=== PATIENT | female | born 1940 | race Caucasian/White ===

== ENCOUNTER 2016-09-14 17:38 | Emergency (ER) | payer OTHER, MEDICARE ==
[~2016-09-14] VITALS: Ht 160 cm; Wt 59.0 kg
[~2016-09-14 17:38] MED LIST: DIABETA PO; GLUCOPHAGE500 MG PO; GLYBURIDE 5 MG T5 M1 PO; METFORMIN PO; QUININE PO; RAW CALCIUM PO; [UNRECOGNIZED DRUG - OTHER] PO
[2016-09-14] MEDS ORDERED: LISINOPRIL40 MG PO (17:42)
[2016-09-14] MEDS ORDERED: NORCO 5-325 TA1 EACH PO (18:20)
[2016-09-14 18:31] VITALS: BP 164/110
== END 2016-09-14 18:32 | disposition home or self-care (01) ==
LOC: ER 17:38
DX: S00.93XA Contusion of unspecified part of head, initial encounter (principal); E11.9 Type 2 diabetes mellitus without complications; Z90.89 Acquired absence of other organs; W01.10XA Fall on same level from slipping, tripping and stumbling with subsequent striking against unspecified object, initial encounter; Y93.01 Activity, walking, marching and hiking; Y92.89 Other specified places as the place of occurrence of the external cause; Y99.8 Other external cause status

== ENCOUNTER 2016-11-08 19:53 | Inpatient (IN) | payer OTHER ==
[~2016-11-08] VITALS: Ht 160 cm; Wt 74.9 kg
--- NOTE | ~2016-11-08 | HC ---
[facility] [place] [address] CONSULTATION Name: CHERELLE SMITH Room #: 314-P [facility] IN .R.#: [id number] Admission: 11/08/16 Attend Phys: Kyle Donovan MD Discharge: 11/13/16 Date of : 38 Report #: [id number] THIS REPORT FOR: //name// CC: FAM unknown Kyle Donovan DATE OF SERVICE: 11/09/2016 HISTORY OF PRESENT ILLNESS: The patient is a 76-year-old white female with a prior history of diabetes mellitus, hypertension, premorbidly independent and ambulatory typically without gait aids. She was admitted with 3 falls in the past 2 days. She was found down approximately one hour in her bathroom. She was noted to have mental status changes with metabolic encephalopathy. She had an elevated troponin. Cardiology is involved and a nuclear stress test is currently pending. She was noted to have urinary tract infection and acute renal insufficiency with an elevated creatinine. She has pulmonary hypertension and pulmonary medicine as noted, the need for a V/Q scan. She also has a questionable mass of the right hilar region. With her mental status changes and decreased function, we are consulted regarding rehabilitation issues. PAST MEDICAL HISTORY: Includes rul-pfmnndp-ykqznykck diabetes mellitus, right eye surgery. ALLERGIES: No known drug allergies. MEDICATIONS: Please see the full medication listing. HABITS: No history of tobacco or alcohol abuse. SOCIAL HISTORY: Lives at [facility] living [facility]. Did not utilize gait aids, although has a cane. She would typically walk her small dog. There is an involved son. REVIEW OF SYSTEMS: Notes some frustration with her current situation. No current complaints of chest pain, shortness of breath or abdominal discomfort. No focal extremity pain complaints. She has some generalized weakness and fatigue and has concerns regarding why she is falling. PHYSICAL EXAMINATION: GENERAL: She is a 76-year-old white female in no obvious distress. VITAL SIGNS: Last recorded temperature 98.9, pulse 85, respirations 18, blood pressure 122/55. NEUROLOGIC: The patient is alert. Her eye contact is very limited and she seems frustrated at having to be here in the hospital. Limited verbalizations. What she says; however, appears appropriate, although there is a definite latency. Facies appeared symmetric. She notes an old right rotator cuff [address] [address] CONSULTATION Name: CHERELLE SMITH LETTY Room #: [address] [place] [address] IN .R.#: [id number] Admission: 11/08/16 Attend Phys: Kyle Donovan MD Discharge: 11/13/16 Date of : 38 Report #: [id number] shoulder injury. EXTREMITIES: Upper extremities revealed functional range of motion with strength probably a grade 4-/5. In the lower extremities, there is no focal calf swelling. Functional range of motion with strength at grade 3+ to 4-/5. DTRs are trace to 1. She was min assist with sit to stand. She last ambulated 6 steps min assist. ASSESSMENT: A 76-year-old white female with the following problem list: 1. Metabolic encephalopathy. 2. Elevated troponin with nuclear stress test pending. 3. Pulmonary hypertension with recommendations for a V/Q scan per Pulmonary Medicine. 4. Acute renal insufficiency with elevated creatinine. 5. Questionable mass, right hilar region. 6. Urinary tract infection. 7. History of falls x 3 prior to admission. 8. Gait instability. 9. Prior right rotator cuff injury. PLAN: She should be a candidate for an acute in-hospital inpatient rehabilitation stay as she further medically stabilizes. From a preadmission screening perspective: 1. Prior level of function is delineated above. 2. Expect level of improvement would be for her to improve with her gait mobility and hopefully decrease the chances of falling. Goal would be to be independent at least initially at the walker level as well as further improvement with independence with ADLs and cognition, so she can return back to her home setting. Would anticipate a length of stay of probably at least 10 days to 2 weeks pending progress. 3. Evaluation of the patient's risk for clinical complications. She has the multiple above noted comorbidities. 4. Condition that caused the need for rehabilitation would be the metabolic encephalopathy. 5. Treatments needed would include PT, OT and speech 1 hour per day each five days a week throughout the duration of the acute inpatient rehabilitation stay. 6. Anticipated discharge destination would be back to the home setting. 7. Would anticipate home healthcare therapies once ready for discharge. 8. The patient meets diagnostic criteria for an acute in-hospital inpatient rehabilitation stay. She meets medical necessity criteria and we have the multiple document management consultant physicians that are involved. They include Pulmonary Medicine as well as Cardiology, Internal Medicine. They could all follow while the patient is on the acute inpatient rehab trujillo. She does have the tolerance [address] [address] CONSULTATION Name: CHERELLE SMITH Room #: 314-P [facility] IN M.R.#: [id number] Admission: 11/08/16 Attend Phys: Kyle Donovan MD Discharge: 11/13/16 Date of : 38 Report #: [id number] for an acute rehab program and has appropriate discharge goals back to the home setting. <ELECTRONICALLY SIGNED> By: Anmol Dickson MD 11/16/16 1350 1328 1405 Anmol Dickson MD /nt
--- NOTE | ~2016-11-08 | 2DMMODE ---
[facility] [address] [place] [address] 2 D/M-MODE ECHOCARDIOGRAM Name: CHERELLE SMITH Room #: 201-P [facility] IN ..#: [id number] Admission: 11/08/16 Attend Phys: Kyle Donovan MD Discharge: Date of : 38 Date of Service: 11/09/16 1817 Report #: [id number] THIS REPORT FOR: //name// APPROVED REPORT Study performed: 11/09/2016 11:51:08 EXAM: Comprehensive 2D, Doppler, and color-flow Echocardiogram Patient Location: Bedside Room #: 201 Status: routine Other Information Study Quality: Good Indications Diabetes Elevated Troponin Hypertension/HDD 2D Dimensions RVDd: 36.14 mm LVEF(%): 72.77 (>50%) IVSd: 11.96 (7-11mm) LVOT Diam: 19.05 (18-24mm) LVDd: 41.60 mm PWd: 10.70 (7-11mm) Ascending Ao: 31.39 (22-36mm) LVDs: 24.36 (25-40mm) Aortic Root: 34.48 mm IVC: 2.90 mm Jimenez's LVEF: 72.77 % Volumes Left Atrial Volume (Systole) Single Plane 4CH: 45.47 mL Single Plane 2CH: 71.76 mL Aortic Valve AoV Peak Giancarlo.: 1.48 m/s AO Peak Gr.: 8.77 mmHg LVOT Max P.72 mmHg LVOT Max V: 0.82 m/s ANIBAL Vmax: 1.58 cm2 Mitral Valve E/A Ratio: 0.9 MV Decel. Time: 251.86 ms MV E Max Giancarlo.: 0.96 m/s MV A Giancarlo.: 1.11 m/s MV PHT: 73.04 ms [facility] [address] [place] [address] 2 D/M-MODE ECHOCARDIOGRAM Name: SARAHCHERELLE LETTY Room #: 201-P [facility] IN M.R.#: [id number] Admission: 11/08/16 Attend Phys: Kyle Donovan MD Discharge: Date of : 38 Date of Service: 11/09/16 1817 Report #: [id number] IVRT: 78.43 ms Pulmonary Valve PV Peak Giancarlo.: 0.80 m/s PV Peak Gr.: 2.58 mmHg Pulmonary Vein P Vein S: 0.41 m/s P Vein A: 0.24 m/s P Vein D: 0.31 m/s P Vein A Dur.: 99.2 msec P Vein S/D Ratio: 1.32 Tricuspid Valve TR Peak Giancarlo.: 3.68 m/s RAP Estimate: 10.00 mmHg TR Peak Gr.: 54.23 mmHg PA Pressure: 64.00 mmHg Left Ventricle The left ventricle is normal size. There is normal LV segmental wall motion. Mild concentric left ventricular hypertrophy. The left ventricular systolic function is normal. The left ventricular ejection fraction is within the normal range. LVEF is 60-65%. Grade I - abnormal relaxation pattern. Right Ventricle The right ventricle is normal size. The right ventricular systolic function is normal. Atria Left atrium is dilated. The right atrium size is normal. Aortic Valve Aortic valve is calcified. Mild aortic regurgitation. There is no aortic valvular stenosis. Mitral Valve Moderate mitral annular calcification. Trace mitral regurgitation. No evidence of mitral valve stenosis. Tricuspid Valve The tricuspid valve is normal in structure. There is mild to moderate tricuspid regurgitation. The right atrial pressure is estimated at 10 mmHg. There is moderate pulmonary hypertension with an estimated PAP of 60 mmHg. Pulmonic Valve The pulmonary valve is normal in structure. Trace pulmonic regurgitation. [facility] [address] [place] [address] 2 D/M-MODE ECHOCARDIOGRAM Name: CHERELLE SMITH Room #: 201-P [facility] IN ..#: [id number] Admission: 11/08/16 Attend Phys: Kyle Donovan MD Discharge: Date of : 38 Date of Service: 11/09/16 1817 Report #: [id number] Great Vessels The aortic root is normal in size. The ascending aorta is normal in size. IVC is dilated and collapses <50% with inspiration. Pericardium There is no pericardial effusion. <Conclusion> The left ventricular systolic function is normal. There is normal LV segmental wall motion. Mild concentric left ventricular hypertrophy. LVEF is 60-65%. Grade I diastolic dysfunction Left atrium is dilated. Aortic valve is calcified, no stenosis, mild insufficiency. Moderate mitral annular calcification. Trace mitral regurgitation. Pulmonary artery pressure of 60mmHg There is no pericardial effusion. <ELECTRONICALLY SIGNED> By: Davon Perla MD, [facility] 11/09/161816 16 16 Davon Perla MD, FACC /INF
--- NOTE | ~2016-11-08 | EKG ---
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 : 1940 Requested By: Phil Ramsay Order Number: [id number] MD: Davon Perla Measurements Intervals [place] Rate: 85 P: 28 TX: 135 QRS: 58 QRSD: 94 T: 37 QT: 385 QTc: 458 Interpretive Statements Sinus rhythm Occasional atrial premature complexes Compared to ECG 10/19/2010 07:10:19 No significant change was found Electronically Signed On 11-10-2016 8:45:27 CDT by Davon Perla [email or web address] <ELECTRONICALLY SIGNED> By: Davon Perla MD, [facility] 11/10/1645 56 56 Davon Perla MD, [facility] /EPI
--- NOTE | ~2016-11-08 | HC ---
[facility] [place] [address] CONSULTATION Name: CHERELLE SMITH Room #: 202-P ADM IN M.R.#: [id number] Admission: 11/08/16 Attend Phys: Kyle Donovan MD Discharge: Date of : 38 Report #: [id number] THIS REPORT FOR: //name// CC: FAM unknown Kyle Donovan DATE OF SERVICE: 11/12/2016 REASON FOR CONSULTATION: Elevated creatinine. REASON FOR PRESENTATION: Dizziness. HISTORY OF PRESENT ILLNESS: The patient is a 76-year-old with multiple comorbid issues including diabetes mellitus, hypertension, severe pulmonary hypertension. She presented to the hospital reporting some dizziness. On presentation to the Emergency Room, her creatinine was 1.9. Further evaluation and management mandated an admission to the hospital. Her hospital course revealed that the son found the patient in the bathroom. There was no reported chest pain, fever or chills. No shortness of breath, no nausea or vomiting. The patient is currently confused and the details of the history were obtained from the medical charts. Further evaluation in the hospital revealed that she had a possible mass in the right hilar region with what seems to be lung infiltrates. Pulmonary had been consulted along with the cardiac team. She had a myocardial perfusion effusion scan, echo, lower extremity ultrasounds. The results of those are well documented in the medical charts. The patient's blood pressure is very labile with readings as high as 194/99. In the last few days, she continued to have some issues with hyponatremia, acute kidney injury with a creatinine rising up to 2.7 and then down to 2.6 today. She did have some issues with potassium yesterday. She continues to make good amount of urine and I was consulted to manage her acute kidney injury. PAST MEDICAL HISTORY: 1. Hypertension. 2. Status post tonsillectomy. 3. Colonoscopy. 4. Diabetes mellitus. 5. Seems to be chronic kidney disease based on her previous records. 6. Dementia. 7. Diabetic retinopathy. FAMILY HISTORY: Her father of a heart attack at the age of 54. Her brother of a heart attack at the age of 57. SOCIAL HISTORY: No reported drug or alcohol abuse. She resides in a nursing facility. [address] [address] CONSULTATION Name: CHERELLE SMITH Room #: 202-P [facility] IN [facility]#: [id number] Admission: 11/08/16 Attend Phys: Kyle Donovan MD Discharge: Date of : 38 Report #: [id number] MEDICATIONS: On presentation listed amongst the patient's medications are the followin. Lisinopril. 2. Glucophage. 3. Aleve. 4. Ibuprofen. REVIEW OF SYSTEMS: The patient is currently disoriented to time, place and person and not able to provide me with any review of systems. PHYSICAL EXAMINATION: GENERAL: She is disoriented. VITAL SIGNS: Temperature 36.4, blood pressure 194/99. HEAD AND NECK: No jugular venous distention. CHEST: Decreased air entry bilaterally. CARDIOVASCULAR: Regular with no rub detected. ABDOMEN: Soft, nontender with no hepatosplenomegaly. LOWER EXTREMITIES: +2 edema. LABORATORY VALUES: Reviewed. Creatinine is down to 2.6. Sodium is depressed at 126. Potassium is down. ASSESSMENT, IMPRESSION AND PLAN: 1. Acute kidney injury. 2. Chronic kidney disease. 3. Severe pulmonary hypertension. 4. Diabetes mellitus. 5. Urinary tract infection. 6. Initiate appropriate workup for her acute kidney injury. 7. She does seem to have an element of chronic kidney disease based on her previous values. 8. Initiate diuresis. 9. Treat her urinary tract infection. 10. Watch blood pressure and gently reduce her blood pressure readings to a target of around 150-160, avoid aggressive blood pressure reductions to avoid further deterioration of her kidney issues. 11. Continue with the normal saline for today. 12. We will continue to follow along. By: [id number] Tereso Patel MD /nt
[~2016-11-08 19:53] MED LIST changes: +LISINOPRIL40 MG PO; +NORCO 5-325 TA1 EACH PO
[2016-11-08 19:58] VITALS: BP 130/51
[2016-11-08] MEDS ORDERED: MAGOX 400400 MG PO (20:02)
[2016-11-08] MEDS ORDERED: NAPROSYN500 MG PO (20:03)
[2016-11-08] MEDS ORDERED: SEROQUEL 25 MG25 M2 PO (20:05)
[2016-11-08] MEDS ORDERED: IBUPROFEN 200200 M1 PO (20:06)
[2016-11-08 21:23] LABS: HEMATOCRIT 32.7 % (37.0-47.0); MANUAL DIFF YES; MCH 27.5 pg (26.0-34.0); MCHC 33.6 g/dL (28.0-37.0); MCV 81.7 fL (80.0-100.0); PLATELET COUNT 179 thou/uL (150-400); RBC 4.01 mil/uL (4.20-5.00); RDW 15.1 % (10.5-14.5); WBC 9.5 thou/uL (4.0-11.0)
[2016-11-08 21:24] LABS: URINE BILIRUBIN NEGATIVE (Negative); URINE BLOOD 2+ (Negative); URINE COLOR YELLOW; URINE GLUCOSE-RANDOM* NEGATIVE (Negative); URINE KETONES NEGATIVE (Negative); URINE LEUKOCYTES-REFLEX 2+ (Negative); URINE PROTEIN (DIPSTICK) 2+ (Negative); URINE SPECIFIC GRAVITY 1.015 (1.003-1.035); URINE UROBILINOGEN 0.2 E.U./dl (0.2-1.0)
[2016-11-08 21:26] LABS: CALCIUM 9.2 mg/dL (8.5-10.1); CREATININE 1.9 mg/dL (0.6-1.0); POTASSIUM 4.5 mmol/L (3.5-5.1)
[2016-11-08 21:35] LABS: TROPONIN-I 0.28 ng/mL (<0.04-0.07)
[2016-11-08 21:38] LABS: CASTS None Seen /LPF (None Seen); CRYSTALS None Seen /LPF (None Seen); SQUAMOUS >10 Many /LPF (0-3); URINE WBC-REFLEX >25 Many /HPF (0-5)
[2016-11-08 21:44] LABS: ABSOLUTE NEUTROPHILS 9.3 thou/uL (1.4-8.2); LARGE PLATELETS FEW; TOTAL CELL COUNT 100; TOXIC GRANULATION 2+
[2016-11-08 21:45] LABS: ANISOCYTOSIS SLIGHT; BURR CELLS 1+
[2016-11-08 23:12] LABS: APTT 25.8 Seconds (24.5-32.8); PROTIME 10.5 Seconds (9.3-11.4)
[2016-11-08 23:32] VITALS: BP 130/51
[2016-11-09 00:01] VITALS: BP 149/54
[2016-11-09 02:51] LABS: TSH 0.91 uIU/mL (0.358-3.740)
[2016-11-09 04:45] VITALS: BP 123/65
[2016-11-09 05:31] LABS: HEMATOCRIT 30.1 % (37.0-47.0); HEMOGLOBIN 10.1 gm/dL (12.0-15.0); MCH 27.3 pg (26.0-34.0); MCHC 33.6 g/dL (28.0-37.0); MCV 81.2 fL (80.0-100.0); RBC 3.71 mil/uL (4.20-5.00); RDW 15.1 % (10.5-14.5)
[2016-11-09 05:50] LABS: CALCIUM 8.4 mg/dL (8.5-10.1); CREATININE 1.9 mg/dL (0.6-1.0); POTASSIUM 4.6 mmol/L (3.5-5.1); TROPONIN-I 0.46 ng/mL (<0.04-0.07)
[2016-11-09 05:53] LABS: CHOLESTEROL 132 mg/dL (<200); HDL CHOLESTEROL 47 mg/dL (>40); LDL CHOLESTEROL 73 mg/dL (<100); SERUM ASSESSMENT Clear; TC:HDL 2.8 Ratio (Not establshd); TRIGLYCERIDE 62 mg/dL (<150); VLDL 12 mg/dL (<40)
[2016-11-09 05:58] LABS: PROTIME 10.7 Seconds (9.3-11.4)
[2016-11-09 06:07] LABS: APTT 60.7 Seconds (24.5-32.8)
[2016-11-09 07:05] VITALS: BP 119/63
[2016-11-09 11:25] VITALS: BP 150/71
[2016-11-09 15:20] VITALS: BP 133/64
[2016-11-09 19:02] VITALS: BP 149/65
[2016-11-10 03:20] VITALS: BP 118/66
[2016-11-10 07:00] VITALS: BP 122/55
[2016-11-10 07:03] LABS: HEMOGLOBIN 10.5 gm/dL (12.0-15.0); MCH 27.6 pg (26.0-34.0); MCV 81.4 fL (80.0-100.0); RBC 3.81 mil/uL (4.20-5.00); RDW 15.7 % (10.5-14.5); WBC 10.1 thou/uL (4.0-11.0)
[2016-11-10 08:45] LABS: CALCIUM 8.3 mg/dL (8.5-10.1); CREATININE 2.5 mg/dL (0.6-1.0); POTASSIUM 4.5 mmol/L (3.5-5.1)
[2016-11-10 13:25] VITALS: BP 139/65
[2016-11-10 15:50] VITALS: BP 147/95
[2016-11-10 19:09] VITALS: BP 226/83
[2016-11-10 21:30] VITALS: BP 157/78
[2016-11-11] VITALS (7 sets, daily range): BP systolic 143–196; BP diastolic 64–95
[2016-11-11 05:56] LABS: HEMATOCRIT 30.6 % (37.0-47.0); HEMOGLOBIN 10.1 gm/dL (12.0-15.0); MCH 27.2 pg (26.0-34.0); MCHC 33.1 g/dL (28.0-37.0); MCV 82.3 fL (80.0-100.0); RBC 3.72 mil/uL (4.20-5.00); RDW 15.6 % (10.5-14.5); WBC 9.7 thou/uL (4.0-11.0)
[2016-11-11 06:15] LABS: CALCIUM 8.2 mg/dL (8.5-10.1); CREATININE 2.7 mg/dL (0.6-1.0); POTASSIUM 5.3 mmol/L (3.5-5.1)
[2016-11-12 02:56] VITALS: BP 129/65
[2016-11-12 02:57] LABS: ALBUMIN 2.2 g/dL (3.4-5.0); CALCIUM 8.5 mg/dL (8.5-10.1); CREATININE 2.6 mg/dL (0.6-1.0); PHOSPHORUS 3.1 mg/dL (2.5-4.9); POTASSIUM 4.5 mmol/L (3.5-5.1)
[2016-11-12 07:37] VITALS: BP 194/99
[2016-11-12 11:35] VITALS: BP 148/88
[2016-11-12 14:15] LABS: URINE BILIRUBIN NEGATIVE (Negative); URINE BLOOD 2+ (Negative); URINE COLOR YELLOW; URINE GLUCOSE-RANDOM* NEGATIVE (Negative); URINE KETONES 1+ (Negative); URINE NITRITE NEGATIVE (Negative); URINE PROTEIN (DIPSTICK) 1+ (Negative); URINE UROBILINOGEN 0.2 E.U./dl (0.2-1.0)
[2016-11-12 14:20] LABS: URINE PROTEIN-RANDOM* 69.1 mg/dL (<11.9)
[2016-11-12 14:23] LABS: SQUAMOUS 0-3 Few /LPF (0-3); URINE RBC 3-10 Few /HPF (0-2); URINE WBC 6-15 Few /HPF (0-5)
[2016-11-12 14:24] LABS: BACTERIA 1-9 Few /HPF (None Seen); CASTS None Seen /LPF (None Seen); CRYSTALS None Seen /LPF (None Seen)
[2016-11-12 15:45] VITALS: BP 146/71
[2016-11-12 16:53] LABS: ABG SAMPLE TYPE ARTERIAL; BE(vivo) -9.2 mmol/L (-2 to +3); HCO3 14.4 mmol/L (22.0-26.0); LACTATE 1.27 mmol/L (0.5-2.0); PO2 102.6 mmHg (80.0-100.0); sO2 97.7 % (92.0-98.0); tCO2 15.2 mmol/L (24.0-30.0)
[2016-11-12 16:54] LABS: PCO2 24.9 mmHg (35.0-45.0); STICK SITE L.RADIAL
[2016-11-12 19:19] VITALS: BP 141/77
[2016-11-13] VITALS: BP 154/73
[2016-11-13 04:00] VITALS: BP 145/75
[2016-11-13 05:32] LABS: HEMOGLOBIN 9.7 gm/dL (12.0-15.0); MCHC 33.6 g/dL (28.0-37.0); MCV 80.3 fL (80.0-100.0); RBC 3.61 mil/uL (4.20-5.00); WBC 7.4 thou/uL (4.0-11.0)
[2016-11-13 05:42] LABS: ALBUMIN 2.1 g/dL (3.4-5.0); CALCIUM 8.6 mg/dL (8.5-10.1); CREATININE 2.4 mg/dL (0.6-1.0); PHOSPHORUS 3.7 mg/dL (2.5-4.9); POTASSIUM 3.8 mmol/L (3.5-5.1)
[2016-11-13 08:00] VITALS: BP 122/87
[2016-11-13] MEDS ORDERED: DUONEB 2.5-0.5 M3 ML INH (13:52)
[2016-11-13] MEDS ORDERED: NORVASC10 MG PO (13:53)
[2016-11-13] MEDS ORDERED: LORAZEPAM 1 MG T1 M1 PO (13:54)
[2016-11-13] MEDS ORDERED: FUROSEMIDE20 MG/2 ML IV PUSH (13:54)
[2016-11-13] MEDS ORDERED: ASPIRIN EC325 M1 PO (13:54)
[2016-11-13] MEDS ORDERED: PROTONIX40 M1 PO (13:55)
[2016-11-13] MEDS ORDERED: KEFLEX500 MG PO (13:59)
== END 2016-11-13 15:17 | DRG 682 ==
LOC: ER 19:53 → 2N 22:27 → EROBS 22:27 → 2N 23:14 → 3N 11-13 00:17
PROVIDERS: Emergency Medicine; Hospitalist; Internal Medicine Pulmonary Disease; Nurse Practitioner Family
DX: N17.9 Acute kidney failure, unspecified (principal); G93.41 Metabolic encephalopathy; N39.0 Urinary tract infection, site not specified; E87.1 Hypo-osmolality and hyponatremia; I27.2 Other secondary pulmonary hypertension; R26.81 Unsteadiness on feet; F03.90 Unspecified dementia, unspecified severity, without behavioral disturbance, psychotic disturbance, mood disturbance, and anxiety; E11.319 Type 2 diabetes mellitus with unspecified diabetic retinopathy without macular edema; E11.22 Type 2 diabetes mellitus with diabetic chronic kidney disease; N18.9 Chronic kidney disease, unspecified; I12.9 Hypertensive chronic kidney disease with stage 1 through stage 4 chronic kidney disease, or unspecified chronic kidney disease; R53.81 Other malaise; R59.9 Enlarged lymph nodes, unspecified; Z90.49 Acquired absence of other specified parts of digestive tract; Z79.899 Other long term (current) drug therapy; Z91.81 History of falling; Z82.49 Family history of ischemic heart disease and other diseases of the circulatory system
CPT/HCPCS: 10081

== ENCOUNTER 2016-11-13 12:26 | Inpatient (IN) | payer OTHER ==
[~2016-11-13] VITALS: Ht 160 cm; Wt 66.1 kg
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
--- NOTE | ~2016-11-13 | PLAN ---
[facility] [place] [address] REHAB UNIT PLAN OF CARE Name: CHERELLE SMITH Room #: 513-P ADM IN M.R.#: [id number] Admission: 11/13/16 Attend Phys: Anmol Dickson MD Discharge: Date of : 38 Report #: [id number] THIS REPORT FOR: //name// CC: Anmol Dickson [facility] unknown DATE OF SERVICE: 11/15/2016 The patient was seen back today in followup. She is sleepy this morning, received some Ativan last night. She has the indwelling Matute catheter. She has noted urinary retention. Temperature 98, pulse 81, respirations 20, blood pressure 146/77. She has been working in therapies with transfers, mod assist, gait 50 feet mod assist with a front-wheeled walker. In occupational therapy, upper body dressing is mod assist, lower body dressing is max assist. In speech therapy, she is mild to moderate as far as comprehensive deficits. ASSESSMENT: 1. Metabolic encephalopathy. 2. Elevated troponin. 3. Acute on chronic renal insufficiency. 4. Pulmonary hypertension. 5. Urinary tract infection. 6. Urinary retention. 7. History of frequent falls, premorbidly. PLAN: Discussion with the hospitalist nurse practitioner. Psychiatry is to be consulted for further assistance regarding medication management. She apparently is sundowning with some increased agitation with the Ativan at night and then she is sleepy in the morning. We will see if Psychiatry can assist further with this. The overall plan of care is based on the preadmission screen, post-admission physician evaluation and information garnered from therapy assessments. 1. Estimated length of stay is probably 2 weeks pending progress. She may need longer. 2. Medical prognosis is reasonably good. 3. Anticipated interventions includes the interdisciplinary acute inpatient rehabilitation program with PT, OT and speech, rehabilitation nursing assisting regarding medication management, skin care prophylaxis, bowel and bladder issues and nursing education. The makeup sales consultant physicians are involved as noted. 4. Anticipated functional outcomes would be for the patient to become modified independent with transfers, mobility, ADLs and cognition to hopefully return back to the home setting. Would anticipate she will likely need at least a walker. 5. Discharge destination would be back to her apartment. She will likely need some more assistance. [address] [address] REHAB UNIT PLAN OF CARE Name: CHERELLE SMITH Room #: 513-P [facility] IN .R.#: [id number] Admission: 11/13/16 Attend Phys: Anmol Dickson MD Discharge: Date of : 38 Report #: [id number] 6. Expected therapy by discipline includes PT, OT and speech 1 hour per day each 5 days a week throughout the duration of the acute inpatient rehabilitation stay. <ELECTRONICALLY SIGNED> By: Anmol Dickson MD 11/16/16 1350 1019 1115 Anmol Dickson MD /nt
--- NOTE | ~2016-11-13 | H ---
[facility] [place] [address] HISTORY AND PHYSICAL Name: CHERELLE SMITH Room #: 513-P [facility] IN M.R.#: [id number] Admission: 11/13/16 Attend Phys: Anmol Dickson MD Discharge: Date of : 36 Report #: [id number] THIS REPORT FOR: //name// CC: Anmol Dickson [facility] unknown HISTORY OF PRESENT ILLNESS: The patient is a 76-year-old white female with a prior history of diabetes mellitus, hypertension, premorbidly independent and ambulatory without gait aids. She was admitted with 3 falls in the prior 2 days prior to her acute hospital admission. She had been found down approximately one hour in her bathroom. She was noted to have mental status changes with metabolic encephalopathy. She had an elevated troponin. Cardiology has been involved. She has pulmonary hypertension. She also has a lung mass with some adenopathy noted that likely is not felt to me malignant, but large enough that it should be followed by serial imaging as an outpatient. With her encephalopathy and the noted falls and her multiple medical issues, she has been admitted now for an acute in-hospital inpatient rehabilitation stay. She will be followed by the multiple consultants during her rehabilitation stay. PAST MEDICAL HISTORY: Includes ssc-bpoqdig-ehirvdien diabetes mellitus and right eye surgery. ALLERGIES: No known drug allergies. MEDICATIONS: Please see the full medication listing. HABITS: No history of tobacco or alcohol abuse. SOCIAL HISTORY: She lives at [facility]. Did not utilize gait aids, although has a cane. She would typically walk her small dog. She has an involved son. REVIEW OF SYSTEMS: No complaints of chest pain, shortness of breath or abdominal discomfort. She has concerns regarding why she is falling. She does have some mild confusion, but was cooperative. She was seen earlier. She still was noted to have the indwelling Matute catheter for I's and O's. PHYSICAL EXAMINATION: GENERAL: A 76-year-old white female, in no obvious distress. The patient was somewhat sleepy as she was seen earlier, would follow basic 1-step commands. VITAL SIGNS: Last recorded temperature 97.9, pulse 95, respirations 18 and blood pressure 162/69. HEENT: Appeared to be benign. Facies were symmetric. CHEST: Diffuse decreased breath sounds throughout. CARDIAC EXAMINATION: Sounded regular rate and rhythm. ABDOMEN: Bowel sounds positive, nontender. GENITOURINARY: Deferred. [address] [address] HISTORY AND PHYSICAL Name: CHERELLE SMITH Room #: 513-P ADM IN .R.#: [id number] Admission: 11/13/16 Attend Phys: Anmol Dickson MD Discharge: Date of : 36 Report #: [id number] RECTAL EXAMINATION: Deferred. She does have the Matute catheter. NEUROLOGIC: Facies appeared symmetric. She does not note an old right rotator cuff and shoulder injury. Upper extremities revealed functional range of motion with strength a grade 4-/5. In the lower extremities, there is no focal calf swelling. Functional range of motion with strength grade 3+ to 4-/5. DTRs are trace to 1. She does need assistance with basic functional mobility skills. She has been transferring with mod assist. She does have increased latency to her responses and tends to be easily distractable. ASSESSMENT: A 76-year-old white female with the following problem list: 1. Metabolic encephalopathy. 2. Elevated troponin. 3. Latst-kk-bvwbufv renal insufficiency. 4. Pulmonary hypertension. 5. Urinary tract infection. 6. History of frequent falls premorbidly. PLAN: The patient is admitted for acute in-hospital inpatient rehabilitation. From a post-admission physician evaluation perspective, there are no relevant changes since the preadmission screening. Please see the above review of prior and current medical and functional conditions and comorbidities. Please see the patient's previous and current functional status. As far as risk of complication, she does have the above-noted medical comorbidities. Initial plan of care involves the interdisciplinary acute inpatient rehabilitation program with a goal of maximizing the patient's functional independence so that she can hopefully return back to her prior living situation. Measurable functional goals would be for her to become modified independent with transfers, mobility and ADLs and improvement in cognition so that she can return back to the home setting. Prognosis is reasonably good. Estimated length of stay is probably at least 10 days to 2 weeks. Potential barriers would include her multiple medical comorbidities and decreased functional status. The patient meets diagnostic criteria for an acute in-hospital inpatient rehabilitation stay. She meets medical necessity criteria. She does have the tolerance for an acute rehabilitation level of care and has appropriate discharge goals back to the home setting. <ELECTRONICALLY SIGNED> By: Anmol Dickson MD 11/16/16 1350 [id number] [id number] Anmol Dickson MD /nt
[~2016-11-13 12:26] MED LIST changes: +IBUPROFEN 200200 M1 PO; +MAGOX 400400 MG PO; +NAPROSYN500 MG PO; +SEROQUEL 25 MG25 M2 PO
[2016-11-13] MEDS ORDERED: DUONEB 2.5-0.5 M3 ML INH (13:52)
[2016-11-13] MEDS ORDERED: NORVASC10 MG PO (13:53)
[2016-11-13] MEDS ORDERED: FUROSEMIDE20 MG/2 ML IV PUSH (13:54)
[2016-11-13] MEDS ORDERED: LORAZEPAM 1 MG T1 M1 PO (13:54)
[2016-11-13] MEDS ORDERED: ASPIRIN EC325 M1 PO (13:54)
[2016-11-13] MEDS ORDERED: PROTONIX40 M1 PO (13:55)
[2016-11-13] MEDS ORDERED: KEFLEX500 MG PO (13:59)
[2016-11-13 15:30] VITALS: BP 144/66
[2016-11-14 04:41] VITALS: BP 122/75; BP 162/69
[2016-11-14 06:30] LABS: HEMOGLOBIN 10.4 gm/dL (12.0-15.0); RDW 16.3 % (10.5-14.5)
[2016-11-14 06:33] LABS: HEMATOCRIT 30.9 % (37.0-47.0); MCH 27.2 pg (26.0-34.0); MCHC 33.5 g/dL (28.0-37.0); MCV 81.2 fL (80.0-100.0); RBC 3.81 mil/uL (4.20-5.00); WBC 13.7 thou/uL (4.0-11.0)
[2016-11-14 16:00] VITALS: BP 128/58
[2016-11-15 05:12] LABS: ALBUMIN 2.2 g/dL (3.4-5.0); CALCIUM 8.8 mg/dL (8.5-10.1); CREATININE 2.1 mg/dL (0.6-1.0); PHOSPHORUS 3.9 mg/dL (2.5-4.9); POTASSIUM 3.6 mmol/L (3.5-5.1)
[2016-11-15 05:54] VITALS: BP 146/77
[2016-11-15 16:14] VITALS: BP 128/63
[2016-11-16 01:41] VITALS: BP 121/63
[2016-11-16 07:30] VITALS: BP 155/80
[2016-11-16 16:00] VITALS: BP 119/53
[2016-11-17 01:07] LABS: GLYCOHEMOGLOBIN (HGB A1C) 8.9 % (4.8-5.6)
[2016-11-17 03:30] VITALS: BP 150/66
[2016-11-17 06:09] LABS: ABSOLUTE NEUTROPHILS 4.6 thou/uL (1.4-8.2); BASOPHILS 0.8 % (0.0-2.0); EOSINOPHILS 4.7 % (0.0-3.0); HEMATOCRIT 29.6 % (37.0-47.0); HEMOGLOBIN 10.1 gm/dL (12.0-15.0); LYMPHOCYTES 22.1 % (24.0-44.0); MCH 27.1 pg (26.0-34.0); MCHC 34.3 g/dL (28.0-37.0); MCV 78.9 fL (80.0-100.0); MONOCYTES 7.7 % (1.0-8.0); PLATELET COUNT 351 thou/uL (150-400); POLYS 64.7 % (36.0-66.0); RBC 3.75 mil/uL (4.20-5.00); RDW 15.8 % (10.5-14.5); WBC 7.1 thou/uL (4.0-11.0)
[2016-11-17 06:10] LABS: MANUAL DIFF NO
[2016-11-17 06:34] LABS: ALBUMIN 2.3 g/dL (3.4-5.0); CALCIUM 8.5 mg/dL (8.5-10.1); MAGNESIUM 1.3 mg/dL (1.8-2.4); PHOSPHORUS 4.3 mg/dL (2.5-4.9); POTASSIUM 3.7 mmol/L (3.5-5.1)
[2016-11-17 16:45] VITALS: BP 115/67
[2016-11-18 04:30] VITALS: BP 120/58
[2016-11-18 05:03] VITALS: BP 120/58
[2016-11-18 14:56] VITALS: BP 122/64
[2016-11-19 05:01] VITALS: BP 115/62
[2016-11-19 15:24] VITALS: BP 105/54
[2016-11-19 21:55] VITALS: BP 132/51
[2016-11-20 05:19] VITALS: BP 116/47
[2016-11-20 05:28] LABS: ALBUMIN 2.3 g/dL (3.4-5.0); CALCIUM 8.8 mg/dL (8.5-10.1); CREATININE 1.9 mg/dL (0.6-1.0); PHOSPHORUS 4.7 mg/dL (2.5-4.9); POTASSIUM 5.1 mmol/L (3.5-5.1)
[2016-11-20 16:00] VITALS: BP 114/57
[2016-11-21 03:28] VITALS: BP 119/57
[2016-11-21 05:56] LABS: ABSOLUTE NEUTROPHILS 2.3 thou/uL (1.4-8.2); BASOPHILS 1.5 % (0.0-2.0); HEMATOCRIT 29.8 % (37.0-47.0); HEMOGLOBIN 10.1 gm/dL (12.0-15.0); LYMPHOCYTES 36.7 % (24.0-44.0); MCH 26.8 pg (26.0-34.0); MCHC 33.7 g/dL (28.0-37.0); MCV 79.4 fL (80.0-100.0); MONOCYTES 11.5 % (1.0-8.0); PLATELET COUNT 391 thou/uL (150-400); POLYS 46.3 % (36.0-66.0); RBC 3.75 mil/uL (4.20-5.00); RDW 15.6 % (10.5-14.5); WBC 4.9 thou/uL (4.0-11.0)
[2016-11-21 05:58] LABS: MANUAL DIFF NO
[2016-11-21 06:13] LABS: ALBUMIN 2.7 g/dL (3.4-5.0); CALCIUM 9.1 mg/dL (8.5-10.1); MAGNESIUM 2.3 mg/dL (1.8-2.4); PHOSPHORUS 4.7 mg/dL (2.5-4.9); POTASSIUM 4.8 mmol/L (3.5-5.1)
[2016-11-21 14:12] LABS: c-ANCA <1:20 titer (Neg:<1:20); p-ANCA <1:20 titer (Neg:<1:20)
[2016-11-22 05:04] LABS: ALBUMIN 2.4 g/dL (3.4-5.0); CALCIUM 8.9 mg/dL (8.5-10.1); CREATININE 2.1 mg/dL (0.6-1.0); PHOSPHORUS 4.6 mg/dL (2.5-4.9); POTASSIUM 4.7 mmol/L (3.5-5.1)
[2016-11-22 07:32] VITALS: BP 137/52
[2016-11-23 05:40] VITALS: BP 128/71
[2016-11-23 06:09] LABS: CALCIUM 9.3 mg/dL (8.5-10.1); MAGNESIUM 2.6 mg/dL (1.8-2.4); POTASSIUM 4.6 mmol/L (3.5-5.1)
[2016-11-23 16:00] VITALS: BP 116/42
[2016-11-24 04:17] VITALS: BP 145/69
[2016-11-24 05:03] LABS: ALBUMIN 2.9 g/dL (3.4-5.0); CALCIUM 9.7 mg/dL (8.5-10.1); CREATININE 2.3 mg/dL (0.6-1.0); POTASSIUM 4.9 mmol/L (3.5-5.1)
[2016-11-24 08:03] VITALS: BP 152/68
[2016-11-24 16:05] VITALS: BP 152/68
[2016-11-25 04:22] VITALS: BP 143/59
[2016-11-25 15:57] VITALS: BP 109/46
[2016-11-26 03:04] VITALS: BP 156/76
[2016-11-26 03:51] VITALS: BP 139/69
[2016-11-26 04:49] LABS: ALBUMIN 2.8 g/dL (3.4-5.0); CALCIUM 9.6 mg/dL (8.5-10.1); CREATININE 2.1 mg/dL (0.6-1.0); POTASSIUM 4.6 mmol/L (3.5-5.1)
[2016-11-26 16:00] VITALS: BP 117/47
[2016-11-27 05:25] VITALS: BP 144/57
[2016-11-27 08:13] VITALS: BP 136/50
[2016-11-27 16:00] VITALS: BP 120/54
[2016-11-28 04:34] LABS: ALBUMIN 2.8 g/dL (3.4-5.0); CALCIUM 9.5 mg/dL (8.5-10.1); CREATININE 1.9 mg/dL (0.6-1.0); PHOSPHORUS 4.3 mg/dL (2.5-4.9); POTASSIUM 4.7 mmol/L (3.5-5.1)
[2016-11-28 05:52] VITALS: BP 142/62
[2016-11-28 14:22] VITALS: BP 142/62
[2016-11-28] MEDS ORDERED: MAG6464 MG PO (14:27)
[2016-11-28] MEDS ORDERED: LANTUS100 UNIT/M SUBQ ×2 (14:27→14:28)
[2016-11-28] MEDS ORDERED: FLOMAX0.4 MG PO (14:27)
[2016-11-28] MEDS ORDERED: AMLODIPINE BESYL5 M1 PO (14:27)
[2016-11-28] MEDS ORDERED: HUMALOG100 UNIT/1 SUBQ ×2 (14:27→14:28)
[2016-11-28] MEDS ORDERED: DEMADEX20 MG PO (14:27)
[2016-11-28 17:30] VITALS: BP 135/64
[2016-11-29 05:44] VITALS: BP 129/68
[2016-11-29 11:02] VITALS: BP 142/62
== END 2016-11-29 16:30 | disposition home health service (06) | DRG 71 ==
PROVIDERS: Hospitalist; Internal Medicine Nephrology; Internal Medicine Pulmonary Disease; Nurse Practitioner; Physical Medicine & Rehabilitation
DX: G93.41 Metabolic encephalopathy (principal); N39.0 Urinary tract infection, site not specified; E87.1 Hypo-osmolality and hyponatremia; N17.9 Acute kidney failure, unspecified; N18.9 Chronic kidney disease, unspecified; I27.2 Other secondary pulmonary hypertension; R33.9 Retention of urine, unspecified; F41.9 Anxiety disorder, unspecified; I12.9 Hypertensive chronic kidney disease with stage 1 through stage 4 chronic kidney disease, or unspecified chronic kidney disease; E11.22 Type 2 diabetes mellitus with diabetic chronic kidney disease; B96.20 Unspecified Escherichia coli [E. coli] as the cause of diseases classified elsewhere; R53.81 Other malaise; R91.8 Other nonspecific abnormal finding of lung field; E83.42 Hypomagnesemia; G31.84 Mild cognitive impairment of uncertain or unknown etiology
CPT/HCPCS: 10112

== ENCOUNTER 2017-02-24 16:26 | Inpatient (IN) | payer OTHER ==
[~2017-02-24] VITALS: Ht 160 cm; Wt 63.5 kg
--- NOTE | ~2017-02-24 | EKG ---
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 : 1940 Requested By: Zoya Montes Order Number: [id number] MD: Davon Perla Measurements Intervals [place] Rate: 80 P: 24 OK: 148 QRS: 40 QRSD: 89 T: -57 QT: 378 QTc: 436 Interpretive Statements Sinus rhythm Atrial premature complex Nonspecific repol abnormality, diffuse leads Compared to ECG 11/08/2016 19:57:11 No significant change was found Electronically Signed On 02-25-2017 10:03:16 CHARGE AUDITOR by Davon Perla [email or web address] <ELECTRONICALLY SIGNED> By: Davon Perla MD, [facility] 02/25/17 1003 40 40 Davon Perla MD, [facility] /EPI
[2017-02-24 16:26] VITALS: BP 154/56
[~2017-02-24 16:26] MED LIST changes: +AMLODIPINE BESYL5 M1 PO; +ASPIRIN EC325 M1 PO; +DEMADEX20 MG PO; +DUONEB 2.5-0.5 M3 ML INH; +FLOMAX0.4 MG PO; +FUROSEMIDE20 MG/2 ML IV PUSH; +HUMALOG100 UNIT/1 SUBQ; +KEFLEX500 MG PO; +LANTUS100 UNIT/M SUBQ; +LORAZEPAM 1 MG T1 M1 PO; +MAG6464 MG PO; +NORVASC10 MG PO; +PROTONIX40 M1 PO
[2017-02-24 16:59] LABS: ABSOLUTE NEUTROPHILS 6.5 thou/uL (1.4-8.2); BASOPHILS 0.7 % (0.0-2.0); EOSINOPHILS 2.9 % (0.0-3.0); HEMATOCRIT 31.3 % (37.0-47.0); HEMOGLOBIN 10.3 gm/dL (12.0-15.0); LYMPHOCYTES 14.9 % (24.0-44.0); MANUAL DIFF NO; MCH 25.6 pg (26.0-34.0); MCHC 32.8 g/dL (28.0-37.0); MCV 78.3 fL (80.0-100.0); MONOCYTES 7.5 % (1.0-8.0); PLATELET COUNT 303 thou/uL (150-400); RDW 15.6 % (10.5-14.5); WBC 8.8 thou/uL (4.0-11.0)
[2017-02-24 17:07] LABS: ANION GAP 12 mmol/L (7-16); BUN 50 mg/dL (7-18); CALCIUM 9.6 mg/dL (8.5-10.1); CHLORIDE 99 mmol/L (98-107); CO2 26 mmol/L (21-32); CREATININE 2.2 mg/dL (0.6-1.0); GLUCOSE 288 mg/dL (74-106); POTASSIUM 4.4 mmol/L (3.5-5.1); SODIUM 137 mmol/L (136-145)
[2017-02-24 17:15] LABS: ALBUMIN 3.6 g/dL (3.4-5.0); ALKALINE PHOSPHATASE 143 U/L (46-116); MAGNESIUM 2.3 mg/dL (1.8-2.4); SGOT 26 U/L (15-37); SGPT 23 U/L (30-65); TOTAL BILIRUBIN 0.3 mg/dL (<0.1-1.0); TOTAL PROTEIN 7.9 g/dL (6.4-8.2); TROPONIN-I < 0.04 ng/mL (<0.06)
[2017-02-24 17:31] LABS: URINE BILIRUBIN NEGATIVE (Negative); URINE BLOOD TRACE (Negative); URINE COLOR YELLOW; URINE GLUCOSE-RANDOM* NEGATIVE (Negative); URINE KETONES NEGATIVE (Negative); URINE NITRITE NEGATIVE (Negative); URINE PROTEIN (DIPSTICK) 1+ (Negative); URINE SPECIFIC GRAVITY <= 1.005 (1.003-1.035); URINE UROBILINOGEN 0.2 E.U./dl (0.2-1.0)
[2017-02-24 18:03] LABS: BACTERIA None Seen /HPF (None Seen); CASTS None Seen /LPF (None Seen); CRYSTALS None Seen /LPF (None Seen); SQUAMOUS 0-3 Few /LPF (0-3); URINE RBC 0-2 Rare /HPF (0-2); URINE WBC 0-5 Rare /HPF (0-5)
[2017-02-24 18:13] VITALS: BP 154/59
[2017-02-24 19:10] VITALS: BP 146/92
[2017-02-24 19:11] VITALS: BP 156/45
[2017-02-24 23:30] VITALS: BP 153/59
[2017-02-24 23:48] LABS: POTASSIUM 3.7 mmol/L (3.5-5.1)
[2017-02-25 04:40] VITALS: BP 141/87; BP 158/65
[2017-02-25 06:08] LABS: ABSOLUTE NEUTROPHILS 5.5 thou/uL (1.4-8.2); BASOPHILS 0.8 % (0.0-2.0); HEMATOCRIT 26.3 % (37.0-47.0); HEMOGLOBIN 8.7 gm/dL (12.0-15.0); LYMPHOCYTES 17.6 % (24.0-44.0); MCH 25.6 pg (26.0-34.0); MCHC 32.9 g/dL (28.0-37.0); MCV 77.7 fL (80.0-100.0); MONOCYTES 8.7 % (1.0-8.0); PLATELET COUNT 254 thou/uL (150-400); POLYS 68.9 % (36.0-66.0); RBC 3.39 mil/uL (4.20-5.00); RDW 15.4 % (10.5-14.5)
[2017-02-25 06:19] LABS: CALCIUM 8.6 mg/dL (8.5-10.1); CREATININE 2.1 mg/dL (0.6-1.0); MANUAL DIFF NO; POTASSIUM 4.6 mmol/L (3.5-5.1)
[2017-02-25 08:00] VITALS: BP 123/73
[2017-02-25 13:07] LABS: GLYCOHEMOGLOBIN (HGB A1C) 9.3 % (4.8-5.6)
[2017-02-25 16:00] VITALS: BP 138/74
[2017-02-25 20:00] VITALS: BP 136/65
[2017-02-26 05:07] VITALS: BP 147/58
[2017-02-26 06:16] LABS: CALCIUM 8.9 mg/dL (8.5-10.1); CREATININE 2.2 mg/dL (0.6-1.0); POTASSIUM 4.9 mmol/L (3.5-5.1)
[2017-02-26 08:00] VITALS: BP 134/47
[2017-02-26 15:40] VITALS: BP 131/55
[2017-02-26 20:28] VITALS: BP 121/56
[2017-02-27 03:10] VITALS: BP 124/65
[2017-02-27 06:00] LABS: ABSOLUTE NEUTROPHILS 5.5 thou/uL (1.4-8.2); BASOPHILS 0.8 % (0.0-2.0); EOSINOPHILS 3.5 % (0.0-3.0); HEMATOCRIT 26.4 % (37.0-47.0); HEMOGLOBIN 8.8 gm/dL (12.0-15.0); LYMPHOCYTES 15.8 % (24.0-44.0); MCH 25.9 pg (26.0-34.0); MCHC 33.4 g/dL (28.0-37.0); MCV 77.5 fL (80.0-100.0); MONOCYTES 10.2 % (1.0-8.0); PLATELET COUNT 265 thou/uL (150-400); POLYS 69.7 % (36.0-66.0); RDW 15.1 % (10.5-14.5); WBC 7.9 thou/uL (4.0-11.0)
[2017-02-27 06:02] LABS: MANUAL DIFF NO
[2017-02-27 06:04] LABS: CREATININE 2.1 mg/dL (0.6-1.0); POTASSIUM 4.5 mmol/L (3.5-5.1)
[2017-02-27 08:04] VITALS: BP 158/62
[2017-02-27 16:14] VITALS: BP 148/66
[2017-02-27 20:11] VITALS: BP 126/47
[2017-02-28 04:24] VITALS: BP 134/57
[2017-02-28 06:09] LABS: BASOPHILS 0.3 % (0.0-2.0); EOSINOPHILS 3.9 % (0.0-3.0); HEMATOCRIT 29.2 % (37.0-47.0); HEMOGLOBIN 9.6 gm/dL (12.0-15.0); LYMPHOCYTES 16.2 % (24.0-44.0); MCH 25.7 pg (26.0-34.0); MCHC 32.9 g/dL (28.0-37.0); PLATELET COUNT 290 thou/uL (150-400); POLYS 71.6 % (36.0-66.0); RBC 3.75 mil/uL (4.20-5.00); RDW 15.4 % (10.5-14.5)
[2017-02-28 06:10] LABS: MANUAL DIFF NO
[2017-02-28 06:34] LABS: CALCIUM 9.6 mg/dL (8.5-10.1); CREATININE 2.1 mg/dL (0.6-1.0); MAGNESIUM 2.2 mg/dL (1.8-2.4); POTASSIUM 4.9 mmol/L (3.5-5.1)
[2017-02-28 07:52] VITALS: BP 151/57
[2017-02-28] MEDS ORDERED: NORCO 5-325 TA1 EACH PO (10:20)
[2017-02-28] MEDS ORDERED: LORAZEPAM 1 MG T1 M1 PO (10:20)
== END 2017-02-28 15:45 | DRG 291 ==
LOC: ER 16:26 → 4S 18:11 → EROBS 18:11 → 4S 18:50
PROVIDERS: Internal Medicine Endocrinology, Diabetes & Metabolism; Nurse Practitioner; Nurse Practitioner Family
DX: I50.31 Acute diastolic (congestive) heart failure (principal); G93.40 Encephalopathy, unspecified; E11.22 Type 2 diabetes mellitus with diabetic chronic kidney disease; F03.90 Unspecified dementia, unspecified severity, without behavioral disturbance, psychotic disturbance, mood disturbance, and anxiety; E11.65 Type 2 diabetes mellitus with hyperglycemia; N18.3 Chronic kidney disease, stage 3 (moderate); Z79.4 Long term (current) use of insulin; Z79.899 Other long term (current) drug therapy; Z82.49 Family history of ischemic heart disease and other diseases of the circulatory system; Z83.1 Family history of other infectious and parasitic diseases; Z28.21 Immunization not carried out because of patient refusal
CPT/HCPCS: 10100

== ENCOUNTER 2017-05-22 21:25 | Emergency (ER) | payer OTHER, MEDICARE ==
[~2017-05-22] VITALS: Ht 160 cm; Wt 63.5 kg
[2017-05-22 22:14] LABS: ABSOLUTE NEUTROPHILS 6.8 thou/uL (1.4-8.2); BASOPHILS 0.8 % (0.0-2.0); EOSINOPHILS 1.2 % (0.0-3.0); HEMATOCRIT 27.7 % (37.0-47.0); HEMOGLOBIN 9.2 gm/dL (12.0-15.0); LYMPHOCYTES 10.5 % (24.0-44.0); MCH 26.4 pg (26.0-34.0); MCHC 33.2 g/dL (28.0-37.0); MCV 79.5 fL (80.0-100.0); MONOCYTES 4.7 % (1.0-8.0); PLATELET COUNT 201 thou/uL (150-400); POLYS 82.8 % (36.0-66.0); RBC 3.49 mil/uL (4.20-5.00); RDW 16.7 % (10.5-14.5); WBC 8.2 thou/uL (4.0-11.0)
[2017-05-22 22:19] LABS: ANION GAP 9 mmol/L (7-16); BUN 50 mg/dL (7-18); CALCIUM 8.7 mg/dL (8.5-10.1); CHLORIDE 99 mmol/L (98-107); CO2 22 mmol/L (21-32); CREATININE 2.3 mg/dL (0.6-1.0); GLUCOSE 443 mg/dL (74-106); POTASSIUM 4.7 mmol/L (3.5-5.1); SODIUM 130 mmol/L (136-145)
[2017-05-22 22:25] LABS: ALBUMIN 3.1 g/dL (3.4-5.0); DIRECT BILIRUBIN < 0.1 mg/dL (<0.1-0.3); LIPASE 243 U/L (73-393); SGOT 19 U/L (15-37); SGPT 23 U/L (30-65); TOTAL BILIRUBIN 0.2 mg/dL (<0.1-1.0); TOTAL PROTEIN 6.3 g/dL (6.4-8.2)
[2017-05-22 23:46] VITALS: BP 99/87
== END 2017-05-22 23:46 | disposition home or self-care (01) ==
LOC: ER 21:25
PROVIDERS: Emergency Medicine
DX: K92.2 Gastrointestinal hemorrhage, unspecified (principal); N28.9 Disorder of kidney and ureter, unspecified; E11.65 Type 2 diabetes mellitus with hyperglycemia